=== PATIENT | male | born 1975 | race Caucasian/White ===

== ENCOUNTER 2016-09-15 16:12 | Emergency (ER) | payer OTHER ==
[~2016-09-15] VITALS: Ht 167.6 cm; Wt 84.2 kg
[~2016-09-15 16:12] MED LIST: ESCITALOPRAM OX20 MG; FIORICET 50-301 EACH PO; FLEXERIL10 MG PO; METFORMIN HCL1000 MG PO; MOTRIN IB200 MG PO; NAPROSYN500 MG PO; PERCOCET 5/31 TABLET PO; PROMETHAZINE HC25 M1 PO; SIMVASTATIN40 MG; TEGRETOL200 MG PO; TIZANIDINE HCL4 MG; TRAZODONE HCL50 MG PO; TYLENOL REGULA325 MG PO
[2016-09-15] MEDS ORDERED: ULTRAM50 MG PO (19:12)
[2016-09-15 19:28] VITALS: BP 146/102
== END 2016-09-15 19:29 | disposition home or self-care (01) ==
LOC: EME 16:12
DX: S20.211A Contusion of right front wall of thorax, initial encounter (principal); M54.5 Low back pain; E78.5 Hyperlipidemia, unspecified; F17.200 Nicotine dependence, unspecified, uncomplicated; W17.89XA Other fall from one level to another, initial encounter
CPT/HCPCS: 71101; 72100; 99281; 99283

== ENCOUNTER 2016-09-25 15:59 | Emergency (ER) | payer OTHER ==
[~2016-09-25] VITALS: Ht 167.6 cm; Wt 77.0 kg
[~2016-09-25 15:59] MED LIST changes: +ULTRAM50 MG PO
[2016-09-25 16:41] LABS: HEMATOCRIT 45.4 % (38.0-50.0); MCH 32.8 PG (29.0-34.0); MCHC 33.7 G/DL (30.0-36.0); MCV 97.2 FL (86-99); MEAN PLAT.VOLUME 9.1 uM^3 (9.0-12.4); PLATELET COUNT 304 K/uL (156-360); RBC DIS.WIDTH-CV 12.8 % (11.8-14.6); RBC DIS.WIDTH-SD 45.5 % (39-53); RED BLOOD COUNT 4.67 M/uL (4.00-5.50)
[2016-09-25 16:53] LABS: CHLORIDE 106 mEq/L (99-109); POTASSIUM 4.4 mEq/L (3.7-5.4); SODIUM 140 mEq/L (136-147)
[2016-09-25 16:54] LABS: GLUCOSE 173 mg/dL (70-99)
[2016-09-25 16:56] LABS: ANION GAP 7 MEQ/L (2-14)
[2016-09-25 16:58] LABS: GFR ESTIMATE (CALCULATED) > 59 mL/min/
[2016-09-25 16:59] LABS: UREA NITROGEN (BUN) 10 mg/dL (9-23)
[2016-09-25 17:03] LABS: TROP-I INTERPRETATION NEGATIVE; TROPONIN-I < 0.01 ng/mL (0.0-0.30)
[2016-09-25 17:34] LABS: D-DIMER ELISA 0.16 mg/L FEU (< 0.57)
[2016-09-25 17:42] LABS: ADD MIUA? YES; BILIRUBIN NEGATIVE; BLOOD NEGATIVE; COLOR YELLOW ((YELLOW)); GLUCOSE (STRIP) NEGATIVE; KETONES NEGATIVE; LEUKOCYTES NEGATIVE; NITRITE NEGATIVE; PROTEIN (STRIP) 30; SPECIFIC GRAVITY 1.021 (1.000-1.030); UROBILINOGEN 0.2 MG/DL (0.2-1.0)
[2016-09-25 17:58] LABS: AMPHETAMINE NEGATIVE (500 ng/mL); BARBITURATES NEGATIVE (200 ng/mL); BENZODIAZEPINES NEGATIVE (150 ng/mL); COCAINE NEGATIVE (150 ng/mL); INTERNAL CONTROLS VALID? YES; METHADONE NEGATIVE (200 ng/mL); METHAMPHETAMINE NEGATIVE (500 ng/mL); OPIATES (MORPHINE) NEGATIVE (100 ng/mL); OXYCODONE NEGATIVE (100 ng/mL); PHENCYCLIDINE NEGATIVE (25 ng/mL); PROPOXYPHENE NEGATIVE (300 ng/mL); THC CANNABINOIDS NEGATIVE (50 ng/mL); TRICYCLIC ANTIDEPRESSANTS NEGATIVE (300 ng/mL)
[2016-09-25 18:10] LABS: AMORPHOUS URATES CRYSTALS 3+; BACTERIA NONE SEEN /HPF; CASTS NONE SEEN /LPF; CRYSTALS PRESENT; EPITHELIAL CELLS NONE SEEN /HPF; MUCUS NONE SEEN /LPF; RED BLOOD CELLS NONE SEEN /HPF (0-5); UCUL ADDED? NO; WHITE BLOOD CELLS NONE SEEN /HPF (0-5)
[2016-09-25 19:03] LABS: TROP-I INTERPRETATION NEGATIVE; TROPONIN-I < 0.01 ng/mL (0.0-0.30)
[2016-09-25 21:28] VITALS: BP 152/94
== END 2016-09-25 21:41 | disposition home or self-care (01) ==
LOC: EME 15:59
PROVIDERS: Physician Assistant
DX: R07.9 Chest pain, unspecified (principal); E11.65 Type 2 diabetes mellitus with hyperglycemia; R06.02 Shortness of breath; R10.812 Left upper quadrant abdominal tenderness; Z91.81 History of falling; Z79.891 Long term (current) use of opiate analgesic; F17.200 Nicotine dependence, unspecified, uncomplicated
CPT/HCPCS: 71020; 74177; 80048; 81003; 84484; 85027; 85379; 93005; 99281; 99284; G0480; J7030

== ENCOUNTER 2017-03-05 08:19 | Emergency (ER) | payer OTHER ==
[~2017-03-05] VITALS: Ht 167.6 cm; Wt 78.3 kg
[2017-03-05 09:49] VITALS: BP 145/101
== END 2017-03-05 09:50 | disposition home or self-care (01) ==
LOC: TRA 08:19 → EME 08:19 → TRA 09:50
PROC: 3E0234Z Introduction of Serum, Toxoid and Vaccine into Muscle, Percutaneous Approach (ICD-10-PCS; principal; 2017-03-05)
DX: S60.222A Contusion of left hand, initial encounter (principal); Y92.411 Interstate highway as the place of occurrence of the external cause; V43.52XA Car driver injured in collision with other type car in traffic accident, initial encounter; M54.9 Dorsalgia, unspecified; G89.29 Other chronic pain; E78.5 Hyperlipidemia, unspecified; E11.9 Type 2 diabetes mellitus without complications; Z79.84 Long term (current) use of oral hypoglycemic drugs; Z79.891 Long term (current) use of opiate analgesic; F17.200 Nicotine dependence, unspecified, uncomplicated
CPT/HCPCS: 73130; 99281; 99284; J2270; J3010

== ENCOUNTER 2017-03-28 12:45 | Emergency (ER) | payer OTHER ==
[~2017-03-28] VITALS: Ht 167.6 cm; Wt 77.7 kg
[2017-03-28 15:00] VITALS: BP 134/76
== END 2017-03-28 15:01 | disposition home or self-care (01) ==
LOC: EME 12:45
DX: S60.222A Contusion of left hand, initial encounter (principal); V49.9XXA Car occupant (driver) (passenger) injured in unspecified traffic accident, initial encounter; Y92.410 Unspecified street and highway as the place of occurrence of the external cause; F17.200 Nicotine dependence, unspecified, uncomplicated
CPT/HCPCS: 73130; 99281; 99284

== ENCOUNTER 2017-05-22 20:23 | Emergency (ER) | payer OTHER ==
[~2017-05-22] VITALS: Ht 167.6 cm; Wt 77.6 kg
[2017-05-22 20:35] VITALS: BP 141/98
[2017-05-22] MEDS ORDERED: PREDNISONE20 MG PO (22:31)
[2017-05-22] MEDS ORDERED: LIDODERM 5% P1 PATCH TD (22:31)
== END 2017-05-22 22:30 | disposition home or self-care (01) ==
LOC: EME 20:23
DX: M54.5 Low back pain (principal); G89.29 Other chronic pain; E78.5 Hyperlipidemia, unspecified; E11.9 Type 2 diabetes mellitus without complications; Z79.84 Long term (current) use of oral hypoglycemic drugs; F17.200 Nicotine dependence, unspecified, uncomplicated
CPT/HCPCS: 72100; 99281; 99283; J7512